=== PATIENT | male | born 1990 | race Caucasian/White ===

== ENCOUNTER 2017-12-17 07:34 | Emergency (ER) | payer OTHER ==
[~2017-12-17] VITALS: Ht 172.7 cm; Wt 82.6 kg
[2017-12-17 07:47] VITALS: Ht 172.7 cm; Wt 82.6 kg
[2017-12-17 11:58] VITALS: BP 135/71
== END 2017-12-17 11:58 | disposition home or self-care (01) ==
LOC: ED 07:34
DX: T78.2XXA Anaphylactic shock, unspecified, initial encounter (principal); G43.909 Migraine, unspecified, not intractable, without status migrainosus
CPT/HCPCS: J0171; J2930; J7030; Q0163

== ENCOUNTER 2018-03-01 18:10 | Emergency (ER) | payer OTHER ==
[2018-03-01 18:14] VITALS: Ht 170.2 cm
[2018-03-01 19:33] VITALS: BP 146/76
== END 2018-03-01 19:33 | disposition home or self-care (01) ==
LOC: ED 18:10
DX: S61.212A Laceration without foreign body of right middle finger without damage to nail, initial encounter (principal); W22.8XXA Striking against or struck by other objects, initial encounter; Y93.89 Activity, other specified; Y92.89 Other specified places as the place of occurrence of the external cause; Y99.8 Other external cause status
CPT/HCPCS: Q0092